=== PATIENT | male | born 1975 | race Caucasian/White ===

== ENCOUNTER → 2017-03-10 10:03 | Outpatient (CLI) | payer BC ==
[2015-01-24 06:33] VITALS: BMI 39.1
[~2017-03-10 10:03] MED LIST: ADIPEX-P37.5 M1 PO; LASIX20 MG PO; PRAVACHOL20 MG PO; ZESTRIL40 MG PO
--- NOTE | 2017-03-10 12:16 | NUR ---
Nutrition education for pre/post-op bariatic surgery: S: Pt reports he has been heavy all his life. Pt states his whole family is obese. Pt reports his mother had gastric bypass years ago and has gained back all the weight she lost and is now heavier than she was before surgery. Pt travels for work and is away from home for at least a week at a time. Pt states he really started to gain wt when he changed to this job with all the travel. Pt eats at fast food or chain resturants daily while on the road. Pt also eats out on the weekend with family. Pt has no concept of portion size. Pt tells me he does not eat very much. Pt did use Adipex in 2007 and lost 75# over 7-8 months and was able to keep the weight off for about 1 year. Pt is having trouble finding the time to get any exercise during the week due to work and travel. S: 42 year old male Ht: 5'11" Wt: 315# IBW: 172# +/-10% BMI: 43.9 PMH: DMT2, HTN, high cholesterol Meds: Metformin A: Reviewed pre/post-op diet phases. Reviewed clear liquids, full liquids, puree, soft and regular diets; reviewed sample menus. Discussed liquids between meals; protein requirements; no carbonated drinks, no straws, no alcohol, no sugar, no high-fat foods; pouch stretching; eating out; daily vitamin, mineral supplements. Pt has no idea what a portion size of food should be. Reviewed portion sizes of common CHO foods with emphasis on timing of meals. Pt with good understanding of information provided. pt with realistic expectations for weight loss. Pts goal wt is 220#; pt wants to stop taking medication. Pt with high motivation for change and verbalizes willingness to make the necessary diet changes needed for long-term weight loss success. P: Provided pt with printed diet information and RDN name and phone number. RDN will be available if needed. Thank you for the consult.
== END ==
LOC: D.FANS 10:03
DX: Z01.818 Encounter for other preprocedural examination (principal)

== ENCOUNTER → 2017-05-14 19:38 | Outpatient (CLI) | payer BC ==
[2015-01-24 06:33] VITALS: BMI 39.1
== END | disposition home or self-care (01) ==
LOC: D.SLEEP 08:00
DX: G47.33 Obstructive sleep apnea (adult) (pediatric) (principal)

== ENCOUNTER → 2017-05-24 09:55 | Outpatient (CLI) | payer BC ==
[2015-01-24 06:33] VITALS: BMI 39.1
[~2017-05-24 09:55] MED LIST changes: +GLUCOPHAGE XR750 MG PO; +LYRICA150 MG PO; +NORCO 7.5/325 T1 TA1 PO; -PRAVACHOL20 MG PO; +PRAVACHOL40 MG PO; +ROBAXIN-750750 MG PO; +VOLTAREN75 MG PO; +VYVANSE70 MG PO; +ZOFRAN ODT4 MG/UDTAB PO
[2017-05-24 10:38] LABS: HEMATOCRIT 42.4 % (42.0-54.0); HEMOGLOBIN 14.7 g/dL (13.5-17.5); MCH 29.5 pg (26.0-34.0); MCHC 34.7 g/dL (31.0-37.0); MCV 85.1 fL (80.0-100.0); PLATELET COUNT 221 10x3/uL (130-400); RBC 4.98 10x6/uL (4.20-6.10); RDW 12.5 % (11.5-14.5); WBC 6.8 10x3/uL (4.8-10.8)
[2017-05-24 10:54] LABS: APTT 26.5 SECONDS (22.8-39.4); INR 0.95 (0.85-1.17); PROTIME 12.5 SECONDS (11.6-15.0)
[2017-05-24 10:58] LABS: ALBUMIN 3.7 g/dL (3.4-5.0); ALKALINE PHOSPHATASE 77 U/L (46-116); ALT (SGPT) 61 U/L (10-68); BILIRUBIN - DIRECT 0.07 mg/dL (0.00-0.30); BILIRUBIN - INDIRECT 0.45 mg/dL (0.00-1.00); BILIRUBIN - TOTAL 0.52 mg/dL (0.2-1.3); CALC OSMOLALITY 277 mosm/kg (275-300); CHLORIDE - SERUM 103 mmol/L (98-107); CHOLESTEROL, TOTAL 176 mg/dL (0-200); CREATININE - SERUM 0.9 mg/dL (0.6-1.3); GLUCOSE 133 mg/dL (74-106); HDL CHOLESTEROL 35 mg/dL (32-96); LDL CHOLESTEROL 109 mg/dL (0-100); LDL-HDL RATIO 3.1 ratio (1.5-3.5); POTASSIUM - SERUM 4.1 mmol/L (3.5-5.1); PROTEIN - SERUM 6.9 g/dL (6.4-8.2); SODIUM 137 mmol/L (136-145); T4 THYROXINE 8.8 ug/dL (4.7-13.3); THYROID STIMULATING HORMONE 2.75 uIU/mL (0.36-3.74); TRIGLYCERIDE 164 mg/dL (30-200); UREA NITROGEN 19 mg/dL (7-18); eGFR NON AFRICAN AMERICAN > 90 mL/min (90-120)
[2017-05-24 11:32] LABS: EOSINOPHILS 2 % (0-7); LYMPHOCYTES 50 % (15-50); MONOCYTES 7 % (2-11); NEUTROPHILS 34 % (40-80); PLATELET ESTIMATE NORMAL; ROULEAUX OCC
[2017-05-24 11:33] LABS: HELICOBACTER PYLORI IGG NEGATIVE (NEGATIVE)
[2017-05-25 07:25] LABS: VITAMIN D 25 HYDROXY 17.9 ng/mL (30.0-100.0)
[2017-05-25 08:18] LABS: FOLATE (FOLIC ACID) - SERUM 14.8 ng/mL (>3.0)
== END | disposition home or self-care (01) ==
LOC: D.RAD 09:55
PROVIDERS: Surgery
DX: E66.01 Morbid (severe) obesity due to excess calories (principal); E11.9 Type 2 diabetes mellitus without complications; I10 Essential (primary) hypertension; M15.3 Secondary multiple arthritis; E78.5 Hyperlipidemia, unspecified

== ENCOUNTER 2017-06-14 06:58 | Day surgery (SDC) | payer BC ==
[~2017-06-14 06:58] MED LIST changes: -GLUCOPHAGE XR750 MG PO; -LYRICA150 MG PO; -NORCO 7.5/325 T1 TA1 PO; -ROBAXIN-750750 MG PO; -VOLTAREN75 MG PO; -VYVANSE70 MG PO; -ZOFRAN ODT4 MG/UDTAB PO
[2017-06-14 07:48] LABS: HEMATOCRIT 42.8 % (42.0-54.0); HEMOGLOBIN 14.7 g/dL (13.5-17.5); MCH 29.3 pg (26.0-34.0); MCHC 34.3 g/dL (31.0-37.0); MCV 85.4 fL (80.0-100.0); MEAN PLATELET VOLUME 10.1 fL (7.4-10.4); RBC 5.01 10x6/uL (4.20-6.10); RDW 12.8 % (11.5-14.5); WBC 8.2 10x3/uL (4.8-10.8)
[2017-06-14] MEDS ORDERED: GLUCOPHAGE XR750 MG PO (07:52)
[2017-06-14] MEDS ORDERED: VYVANSE70 MG PO (07:53)
[2017-06-14] MEDS ORDERED: LYRICA150 MG PO (07:54)
[2017-06-14 07:58] VITALS: BP 133/78; BMI 44.1
[2017-06-14 07:59] LABS: CALC OSMOLALITY 286 mosm/kg (275-300); CALCIUM 9.3 mg/dL (8.5-10.1); CARBON DIOXIDE 26.2 mmol/L (21.0-32.0); CHLORIDE - SERUM 106 mmol/L (98-107); GLUCOSE 142 mg/dL (74-106); POTASSIUM - SERUM 4.1 mmol/L (3.5-5.1); SODIUM 142 mmol/L (136-145); UREA NITROGEN 17 mg/dL (7-18); eGFR NON AFRICAN AMERICAN 87 mL/min (90-120)
--- NOTE | 2017-06-14 09:35 | NUR ---
0975 DISCHARGE INSTRUCTIONS COMPLETE. PT HAS NO QUESTIONS OR CONCERNS AT THIS TIME. FOLLOW UP APPOINTMENT MADE WITH DR. GROVE. PT ESCORTED OUT BY VOLUNTEER.
[2017-08-24] MEDS ORDERED: ROBAXIN-750750 MG PO (13:47)
[2017-08-24] MEDS ORDERED: VOLTAREN75 MG PO (13:48)
== END 2017-06-14 09:36 | disposition home or self-care (01) ==
LOC: D.OPS 06:58
PROVIDERS: Surgery
DX: K21.9 Gastro-esophageal reflux disease without esophagitis (principal); E66.01 Morbid (severe) obesity due to excess calories; Z68.41 Body mass index [BMI] 40.0-44.9, adult; I10 Essential (primary) hypertension; E11.9 Type 2 diabetes mellitus without complications; Z01.812 Encounter for preprocedural laboratory examination

== ENCOUNTER 2017-08-25 05:34 | Inpatient (IN) | payer BC ==
[2017-08-24 14:22] LABS: HEMATOCRIT 46.3 % (42.0-54.0); HEMOGLOBIN 16.4 g/dL (13.5-17.5); MCHC 35.4 g/dL (31.0-37.0); MCV 84.6 fL (80.0-100.0); MEAN PLATELET VOLUME 9.7 fL (7.4-10.4); RBC 5.47 10x6/uL (4.20-6.10); RDW 12.5 % (11.5-14.5); WBC 9.4 10x3/uL (4.8-10.8)
[2017-08-24 14:37] LABS: CALC OSMOLALITY 275 mosm/kg (275-300); CALCIUM 9.8 mg/dL (8.5-10.1); CARBON DIOXIDE 26.2 mmol/L (21.0-32.0); CHLORIDE - SERUM 97 mmol/L (98-107); GLUCOSE 119 mg/dL (74-106); SODIUM 136 mmol/L (136-145); UREA NITROGEN 22 mg/dL (7-18); eGFR NON AFRICAN AMERICAN 87 mL/min (90-120)
[~2017-08-25] VITALS: Ht 180.3 cm; Wt 130.9 kg
--- NOTE | ~2017-08-25 | DS ---
PATIENT:KADEN FOWLER :75 MEDICAL RECORD: [id number] DISCHARGE SUMMARY ADMISSION DATE: 08/25/17 DISCHARGE DATE: 08/26/17 DATE OF ADMISSION: 08/25/2017 DATE OF DISCHARGE: 08/26/2017 SURGEON: Bhavin Grove MD PREOPERATIVE DIAGNOSES: 1. Morbid obesity. 2. Body mass index 40 to 44.9. 3. Essential hypertension. 4. Type 2 diabetes. 5. Mixed hyperlipidemia. ADMITTING PHYSICIAN: Bhavin Grove MD HOSPITAL COURSE: This is a 42-year-old male who was admitted to the hospital for an elective laparoscopic vertical sleeve gastrectomy. The patient tolerated the procedure well and postoperatively, he was transferred to the floor in stable condition. On postoperative day #1, he underwent a Gastrografin swallow, which was in normal limits. At the time of discharge, the patient was tolerating bariatric phase 2 diet. His pain was well controlled on oral pain medicine. He was ambulating independently and voiding without difficulty. DISCHARGE CONDITION: Stable. DISCHARGE DIET: Bariatric phase 2 diet for 2 weeks. WOUND CARE: The patient may shower, soap and water to the wound daily. ACTIVITY: As tolerated, no restrictions. FOLLOWUP: With Dr. Grove in 2 weeks. TRANSINT:[id number] Voice Confirmation ID: [id number] DOCUMENT ID: [id number] BHAVIN GROVE MD at 0817 CC: [id number] DICTATION DATE: 10/04/17 172 IRISH MOSS BLEACHER: 10/05/17 0651 DIS IN 08/26/17 [id number] [place] [address]
--- NOTE | ~2017-08-25 | OP ---
PATIENT NAME: KADEN FOWLER MEDICAL RECORD: [id number] :75 LOCATION:D.[facility] ADMISSION DATE:08/25/17 SURGEON: ANDRÉS CHOWDHURY MD DATE OF OPERATION: 08/25/2017 PREOPERATIVE DIAGNOSIS: Gastric sleeve with a defect on the lateral side of the sleeve. POSTOPERATIVE DIAGNOSIS: No evidence of leakage during pneumatic testing of the gastric sleeve. PROCEDURE: EGD. SURGEON: Andrés Chowdhury MD STORE STOCKER: None. BLOOD LOSS: Minimal. ANESTHESIA: General. DESCRIPTION OF PROCEDURE: I was asked to come in the room during this operative procedure. Dr. Partida was repairing a defect along the lateral aspect of the sleeve gastrectomy. He asked me to perform an EGD. A bite block was inserted. A gastroscope was inserted into the mouth. It was easily advanced into the hypopharynx. The esophagus was easily intubated as were the stomach and the first portion of the duodenum. I then withdrew into the stomach. Dr. Partida instilled normal saline into the abdomen. I insufflated and there was no bubbling and no evidence of leakage. I slowly withdrew the endoscope. The sleeve did not appear to be too tight. The endoscope was then withdrawn under direct vision. TRANSINT:[id number] Voice Confirmation ID: [id number] DOCUMENT ID: [id number] ANDRÉS CHOWDHURY MD at 0938 CC: [id number] DICTATION DATE: 08/25/17 1022 ENTRY CLERK: 08/25/17 1209 DIS IN 08/26/17 [address] [id number] [place] [id number]
[~2017-08-25 05:34] MED LIST changes: +GLUCOPHAGE XR750 MG PO; +LYRICA150 MG PO; +ROBAXIN-750750 MG PO; +VOLTAREN75 MG PO; +VYVANSE70 MG PO
[2017-08-25 07:12] VITALS: BP 122/75; BMI 40.2
[2017-08-25 14:52] VITALS: BP 153/76
[2017-08-25 16:55] VITALS: BP 160/70; Ht 180.3 cm; Wt 130.9 kg
[2017-08-25 20:00] VITALS: BP 163/74
[2017-08-26] VITALS: BP 140/81
[2017-08-26 04:00] VITALS: BP 179/95
[2017-08-26 05:24] LABS: BASOPHILS 0.1 % (0-2); EOSINOPHILS 0.1 % (0-7); HEMATOCRIT 42.1 % (42.0-54.0); HEMOGLOBIN 14.4 g/dL (13.5-17.5); IMMATURE GRANULOCYTES 0.3 % (0-5); LYMPHOCYTES 40.2 % (15-50); MCH 29.3 pg (26.0-34.0); MCHC 34.2 g/dL (31.0-37.0); MCV 85.7 fL (80.0-100.0); MEAN PLATELET VOLUME 10.3 fL (7.4-10.4); NEUTROPHILS 53.3 % (40-80); PLATELET COUNT 253 10x3/uL (130-400); RBC 4.91 10x6/uL (4.20-6.10); RDW 13.1 % (11.5-14.5)
[2017-08-26 05:42] LABS: ALBUMIN 3.8 g/dL (3.4-5.0); ALKALINE PHOSPHATASE 67 U/L (46-116); ALT (SGPT) 146 U/L (10-68); BILIRUBIN - TOTAL 0.72 mg/dL (0.2-1.3); CALC OSMOLALITY 276 mosm/kg (275-300); CALCIUM 8.7 mg/dL (8.5-10.1); CARBON DIOXIDE 22.2 mmol/L (21.0-32.0); CHLORIDE - SERUM 101 mmol/L (98-107); CREATININE - SERUM 0.8 mg/dL (0.6-1.3); GLUCOSE 151 mg/dL (74-106); POTASSIUM - SERUM 3.9 mmol/L (3.5-5.1); PROTEIN - SERUM 6.9 g/dL (6.4-8.2); SODIUM 137 mmol/L (136-145); eGFR NON AFRICAN AMERICAN > 90 mL/min (90-120)
[2017-08-26 05:43] LABS: WBC 14.9 10x3/uL (4.8-10.8)
[2017-08-26 05:55] LABS: UREA NITROGEN 13 mg/dL (7-18)
[2017-08-26 08:35] VITALS: BP 148/88
[2017-08-26 13:48] VITALS: BP 150/80
[2017-08-26 16:04] VITALS: BP 152/90
[2017-08-26] MEDS ORDERED: ZOFRAN ODT4 MG/UDTAB PO (16:34)
[2017-08-26] MEDS ORDERED: NORCO 7.5/325 T1 TA1 PO (16:34)
== END 2017-08-26 18:32 | disposition home or self-care (01) | DRG 621 ==
LOC: D.MS 05:34 → D.SDCHOLD 05:34 → D.MS 14:18
PROVIDERS: Anesthesiology; Surgery
PROC: 0DJ08ZZ Inspection of Upper Intestinal Tract, Via Natural or Artificial Opening Endoscopic (ICD-10-PCS; 2017-08-25)
PROC: 0DB64Z3 Excision of Stomach, Percutaneous Endoscopic Approach, Vertical (ICD-10-PCS; principal; 2017-08-25 08:00)
DX: E66.01 Morbid (severe) obesity due to excess calories (principal); Z68.41 Body mass index [BMI] 40.0-44.9, adult; I10 Essential (primary) hypertension; E11.9 Type 2 diabetes mellitus without complications; E78.2 Mixed hyperlipidemia

== ENCOUNTER → 2018-02-22 09:53 | Outpatient (CLI) | payer BC ==
[2017-08-25 16:55] VITALS: BMI 40.2
[~2018-02-22 09:53] MED LIST changes: +NORCO 7.5/325 T1 TA1 PO; +ZOFRAN ODT4 MG/UDTAB PO
[2018-02-22 10:20] LABS: BASOPHILS 0.7 % (0-2); EOSINOPHILS 2.4 % (0-7); HEMATOCRIT 46.5 % (42.0-54.0); HEMOGLOBIN 16.1 g/dL (13.5-17.5); LYMPHOCYTES 42.3 % (15-50); MCH 29.4 pg (26.0-34.0); MCHC 34.6 g/dL (31.0-37.0); MCV 84.9 fL (80.0-100.0); MEAN PLATELET VOLUME 10.5 fL (7.4-10.4); MONOCYTES 11.1 % (2-11); NEUTROPHILS 43.5 % (40-80); RBC 5.48 10x6/uL (4.20-6.10); RDW 13.6 % (11.5-14.5); WBC 4.6 10x3/uL (4.8-10.8)
[2018-02-22 10:23] LABS: PLATELET COUNT 189 10x3/uL (130-400)
[2018-02-22 10:49] LABS: ALBUMIN 3.6 g/dL (3.4-5.0); ALKALINE PHOSPHATASE 84 U/L (46-116); ALT (SGPT) 17 U/L (10-68); BILIRUBIN - TOTAL 0.86 mg/dL (0.2-1.3); CALC OSMOLALITY 286 mosm/kg (275-300); CALCIUM 9.2 mg/dL (8.5-10.1); CARBON DIOXIDE 30.7 mmol/L (21.0-32.0); CHLORIDE - SERUM 106 mmol/L (98-107); CHOL - HDL RATIO 4.4 ratio (2.3-4.9); CHOLESTEROL, TOTAL 219 mg/dL (0-200); CREATININE - SERUM 0.7 mg/dL (0.6-1.3); HDL CHOLESTEROL 50 mg/dL (32-96); LDL CHOLESTEROL 157 mg/dL (0-100); LDL-HDL RATIO 3.1 ratio (1.5-3.5); POTASSIUM - SERUM 3.7 mmol/L (3.5-5.1); PROTEIN - SERUM 6.8 g/dL (6.4-8.2); SODIUM 143 mmol/L (136-145); TRIGLYCERIDE 62 mg/dL (30-200); UREA NITROGEN 17 mg/dL (7-18); eGFR NON AFRICAN AMERICAN > 90 mL/min (90-120)
[2018-02-22 11:00] LABS: GLUCOSE 92 mg/dL (74-106)
== END | disposition home or self-care (01) ==
LOC: D.LAB 09:53
PROVIDERS: Surgery
DX: Z01.812 Encounter for preprocedural laboratory examination (principal); E11.9 Type 2 diabetes mellitus without complications; E78.5 Hyperlipidemia, unspecified; I10 Essential (primary) hypertension; C91.90 Lymphoid leukemia, unspecified not having achieved remission

== ENCOUNTER 2018-10-19 06:01 | Day surgery (SDC) | payer BC ==
[~2018-10-19] VITALS: Ht 180.3 cm; Wt 61.2 kg
[2018-10-19 06:44] LABS: HEMATOCRIT 32.1 % (42.0-54.0); HEMOGLOBIN 10.3 g/dL (13.5-17.5); MCH 25.9 pg (26.0-34.0); MCHC 32.1 g/dL (31.0-37.0); MCV 80.9 fL (80.0-100.0); MEAN PLATELET VOLUME 9.4 fL (7.4-10.4); RBC 3.97 10x6/uL (4.20-6.10); RDW 15.5 % (11.5-14.5)
[2018-10-19 06:52] LABS: CALC OSMOLALITY 283 mosm/kg (275-300); CARBON DIOXIDE 30.1 mmol/L (21.0-32.0); CHLORIDE - SERUM 103 mmol/L (98-107); CREATININE - SERUM 0.7 mg/dL (0.6-1.3); GLUCOSE 94 mg/dL (74-106); POTASSIUM - SERUM 3.1 mmol/L (3.5-5.1); SODIUM 142 mmol/L (136-145); UREA NITROGEN 15 mg/dL (7-18); eGFR NON AFRICAN AMERICAN > 90 mL/min (90-120)
[2018-10-19 07:39] VITALS: BP 101/64; Ht 180.3 cm; Wt 61.2 kg
[2018-10-19] MEDS ORDERED: HYDROCODON-ACE1 EAC7 PO (09:26)
--- NOTE | 2018-10-19 12:03 | OP ---
PATIENT NAME: KADEN FOWLER MEDICAL RECORD: [id number] :75 LOCATION:D.[facility] ADMISSION DATE: SURGEON: BHAVIN GROVE MD DATE OF OPERATION: 10/19/2018 SURGEON: Bhavin Grove MD PREOPERATIVE DIAGNOSES: 1. Gastric anastomotic stricture. 2. Chronic lymphoid leukemia. POSTOPERATIVE DIAGNOSES: 1. Gastric anastomotic stricture. 2. Chronic lymphoid leukemia. PROCEDURE PERFORMED: 1. Tunneled left subclavian PowerPort with immediate interpretation of fluoroscopy. 2. EGD with dilation of gastric anastomotic stricture to 18-mm. ANESTHESIA: General. COMPLICATIONS: None. SPECIMENS: None. First case was clean. Second procedure was clean contaminated. ESTIMATED BLOOD LOSS: Minimal. OPERATIVE COURSE: After consent was obtained, the patient was taken to the operating room and placed in the supine position on the operating table. Next, general anesthesia was given via endotracheal intubation. The left chest and neck were prepped and draped in typical sterile fashion. Timeout was taken to confirm the correct patient and procedure. Ioban dressing was placed over the left chest wall. A 30 cc of local anesthetic were injected into the chest wall. Left subclavian vein was cannulated on the first pass. A guidewire was placed through the needle and advanced to the atriocaval junction under fluoroscopy. The needle was removed. Skin incision was made with a 15-blade scalpel. Dissection continued to the level of the pectoralis fascia using electrocautery. A pocket was created using electrocautery dissection along the pectoralis fascia. The dilator and breakaway sheath were then passed over the wire in a standard Seldinger fashion. The tunneling device was used to tunnel the catheter from the skin incision site to the needle stick site. The catheter was cut to length under fluoroscopy, the guidewire and dilator were removed. The catheter was advanced to the breakaway sheath, the atriocaval junction and the breakaway sheath was removed. This was done under fluoroscopy. The port was then accessed and aspirated blood without difficulty, it was flushed with 30 cc of normal saline mixed with 5000 units of heparin and it was secured to the pectoralis fascia using interrupted 2-0 Prolene suture. The subcutaneous tissue was closed with 3-0 Vicryl suture. The skin was closed with 4-0 Monocryl, Mastisol and Steri-Strips. At this time, the OR drapes were removed. A bite-block was placed. The gastroscope was inserted through the oropharynx. It was passed posterior to the epiglottis and advanced the esophagus under direct endoscopic vision. The scope was advanced to the GE junction, which appeared OPERATIVE REPORT [id number] KADEN FOWLER within normal limits. Scope was advanced to the stomach, which showed some very mild gastritis. In the mid body of the stomach, there was a stricture. Under some light pressure, the scope was able to be advanced across the gastric stricture. The scope was advanced to the distal stomach through the pylorus and the first portion of duodenum. At this time, the gastric stricture was severely dilated. We started with an 8/9/10 balloon. It was inflated to 10 mL and held across the stricture for 3-1/2 minutes. The balloon dilator was removed. At this time, a 12/13/14 mm balloon was placed through the gastroscope and across the gastric stricture. It was inflated to 15-mm and held for 3-1/2 minutes. Again, there was no mucosal trauma identified at this time. A third balloon dilator was then placed, a 16/17/18 balloon was placed across gastric stricture and inflated to 18-mm with minimal resistance. This was held for 3-1/2 minutes. At this time, the balloon dilator was removed. The scope was easily traversed across the stricture. There was no mucosal trauma identified. There was no bleeding. At this time, the stomach was desufflated. The scope was withdrawn through the stomach and the esophagus under direct endoscopic vision. The procedure was terminated. At the end of the case, all needle and instrument counts were correct. No complications occurred. The patient was extubated and transferred to the recovery room in satisfactory condition. TRANSINT:[id number] Voice Confirmation ID: [id number] DOCUMENT ID: [id number] BHAVIN GROVE MD at 1203 CC: [id number] DICTATION DATE: 10/19/18934 SHELLFISH MANAGER: 10/19/18 1004 REG [facility] [address] [id number]
== END 2018-10-19 11:05 | disposition home or self-care (01) ==
LOC: D.OPS 06:01
PROVIDERS: Anesthesiology; ATTEND Surgery
DX: K31.89 Other diseases of stomach and duodenum (principal); C91.10 Chronic lymphocytic leukemia of B-cell type not having achieved remission; K29.70 Gastritis, unspecified, without bleeding; Z01.812 Encounter for preprocedural laboratory examination

== ENCOUNTER 2018-11-11 11:06 | Inpatient (IN) | payer BC ==
[~2018-11-11] VITALS: Ht 180.3 cm; Wt 57.6 kg
[~2018-11-11 11:06] MED LIST changes: +HYDROCODON-ACE1 EAC7 PO
--- NOTE | 2018-11-11 11:30 | NUR ---
RECEIVED TO ROOM 2201 VIA WC FROM MD OFFICE. A/O X3. SKIN HAS ANGRY RASH PRETTY MUCH GENERALIZED ALL OVER. DENIES NEEDS AT THIS TIME.
[2018-11-11] MEDS ORDERED: CYCLOBENZAPRINE10 MG PO (11:35)
[2018-11-11 12:35] VITALS: BP 118/78; BMI 17.7
--- NOTE | 2018-11-11 13:00 | NUR ---
IN ROOM. LEFT PORT ACCESSED AFTER ONE ATTEMPT. PATIENT TOLERATED WITHOUT C/O PAIN.
[2018-11-11 14:13] LABS: HEMATOCRIT 25.6 % (42.0-54.0); HEMOGLOBIN 8.3 g/dL (13.5-17.5); MCH 25.3 pg (26.0-34.0); MCHC 32.4 g/dL (31.0-37.0); MEAN PLATELET VOLUME 10.4 fL (7.4-10.4); RBC 3.28 10x6/uL (4.20-6.10)
[2018-11-11 14:26] LABS: PLATELET COUNT 279 10x3/uL (130-400); WBC 1.7 10x3/uL (4.8-10.8)
[2018-11-11 14:34] LABS: LYMPHOCYTES 20 % (15-50); NEUTROPHILS 80 % (40-80); PLATELET ESTIMATE INCREASED
[2018-11-11 14:35] LABS: ELLIPTOCYTES OCC
[2018-11-11 14:36] LABS: TEAR DROP CELLS OCC
[2018-11-11 14:46] LABS: ALBUMIN 2.4 g/dL (3.4-5.0); ALKALINE PHOSPHATASE 105 U/L (46-116); ALT (SGPT) 17 U/L (10-68); BILIRUBIN - TOTAL 0.84 mg/dL (0.2-1.3); CALC OSMOLALITY 279 mosm/kg (275-300); CALCIUM 8.5 mg/dL (8.5-10.1); CARBON DIOXIDE 27.3 mmol/L (21.0-32.0); CHLORIDE - SERUM 101 mmol/L (98-107); CREATININE - SERUM 0.7 mg/dL (0.6-1.3); GLUCOSE 114 mg/dL (74-106); POTASSIUM - SERUM 3.6 mmol/L (3.5-5.1); PROTEIN - SERUM 5.8 g/dL (6.4-8.2); SODIUM 138 mmol/L (136-145); UREA NITROGEN 20 mg/dL (7-18); eGFR NON AFRICAN AMERICAN > 90 mL/min (90-120)
[2018-11-11 16:58] VITALS: BP 121/81
--- NOTE | 2018-11-11 18:47 | NUR ---
SUPPER TRAY AT BEDSIDE. WAITING ON TO EAT.
--- NOTE | 2018-11-11 18:55 | NUR ---
AWAKE AND ALERT AND DENIES ALL NEEDS...IV FLUIDS ARE TO LEFT MED PORT D5 1/2 AT 75...OBSERVING CONTACT ISOLATION. BED IS LOW AND CALL LIGHT IS IN REACH.
[2018-11-11 19:54] VITALS: BP 135/89
[2018-11-12 00:13] VITALS: BP 130/75
--- NOTE | 2018-11-12 02:12 | NUR ---
I have reviewed this patient and I concur with the Shift Assessment completed by the Licensed Practical Nurse today this shift.
[2018-11-12 05:37] VITALS: BP 139/87
[2018-11-12 06:15] LABS: BASOPHILS 1.8 % (0-2); EOSINOPHILS 0 % (0-7); HEMATOCRIT 24.9 % (42.0-54.0); IMMATURE GRANULOCYTES 45.9 % (0-5); LYMPHOCYTES 12.8 % (15-50); MCH 25.3 pg (26.0-34.0); MCHC 32.1 g/dL (31.0-37.0); MCV 78.8 fL (80.0-100.0); MEAN PLATELET VOLUME 10.4 fL (7.4-10.4); MONOCYTES 7.3 % (2-11); NEUTROPHILS 32.2 % (40-80); PLATELET COUNT 309 10x3/uL (130-400); RBC 3.16 10x6/uL (4.20-6.10); RDW 17.2 % (11.5-14.5)
[2018-11-12 06:18] LABS: WBC 1.1 10x3/uL (4.8-10.8)
--- NOTE | 2018-11-12 06:29 | NUR ---
WBC 1.1....REVERSE ISO INITIATED
--- NOTE | 2018-11-12 08:24 | NUR ---
PT ALERT X 4. BREATH SOUNDS CLEAR BILAT. SKIN RASH ALL OVER. PORT TO LEFT CHEST, PATENT DRESSING CLEAN DRY AND INTACT. PT REPORTING NO PAIN AT THIS TIME. FAMILY AT BEDSIDE. BED LOW, CALL LIGHT IN REACH. NO OTHER NEEDS AT THIS TIME.
--- NOTE | 2018-11-12 09:54 | NUR ---
NOTIFIED BY PHARMACY THAT THE IMMUNOGLOBULIN ORDERED BY DR MELGAR IS NOT AVAILABLE. IT HAS TO BE APPROVED AND ORDERED BY ADMINISTRATION. NOTIFIED DR MELGAR OF THIS SITUATION AT 0148
[2018-11-12 09:57] VITALS: BP 135/87
[2018-11-12 10:00] LABS: % SATURATION 38 % (15-55); IRON 51 ug/dl (35-150); TOTAL IRON BIND CAPACITY 134 ug/dl (260-445); UNSAT IRON BIND CAPACITY 83 ug/dl (150-375)
[2018-11-12 11:52] VITALS: Ht 180.3 cm; Wt 57.6 kg
[2018-11-12 12:47] VITALS: BP 130/98
[2018-11-12 21:18] VITALS: BP 133/95
[2018-11-13 00:48] VITALS: BP 119/80
[2018-11-13 04:50] VITALS: BP 113/76
[2018-11-13 06:56] LABS: HEMATOCRIT 25.4 % (42.0-54.0); HEMOGLOBIN 8.1 g/dL (13.5-17.5); MCH 25.4 pg (26.0-34.0); MCHC 31.9 g/dL (31.0-37.0); MCV 79.6 fL (80.0-100.0); MEAN PLATELET VOLUME 9.6 fL (7.4-10.4); PLATELET COUNT 305 10x3/uL (130-400); RBC 3.19 10x6/uL (4.20-6.10); RDW 17.3 % (11.5-14.5)
[2018-11-13 06:57] LABS: WBC 1.2 10x3/uL (4.8-10.8)
[2018-11-13 07:29] LABS: BASOPHILS 2 % (0-2); EOSINOPHILS 4 % (0-7); LYMPHOCYTES 10 % (15-50); MONOCYTES 26 % (2-11); NEUTROPHILS 46 % (40-80); PLATELET ESTIMATE NORMAL; SMUDGE CELLS 1+; TOXIC GRANULATION 2+
--- NOTE | 2018-11-13 08:13 | NUR ---
PT ALERT X 4. BREATH SOUNDS CLEAR BILAT. PORT TO LEFT CHEST, PATENT, DRESSING CLEAN DRY AND INTACT. PT REPORTING PAIN OF 2/10, WILL MONITOR. FAMILY AT BEDSIDE. BED LOW, CALL LIGHT IN REACH, NO OTHER NEEDS AT THIS TIME.
[2018-11-13 09:45] VITALS: BP 115/74
[2018-11-13 13:24] VITALS: BP 105/82
[2018-11-13 18:08] VITALS: BP 116/85
[2018-11-13 20:00] VITALS: BP 98/65
[2018-11-14] VITALS (10 sets, daily range): BP systolic 99–136; BP diastolic 63–88
[2018-11-14 06:15] LABS: BASOPHILS 0.4 % (0-2); EOSINOPHILS 4.2 % (0-7); HEMATOCRIT 25.6 % (42.0-54.0); HEMOGLOBIN 8.1 g/dL (13.5-17.5); IMMATURE GRANULOCYTES 0.8 % (0-5); LYMPHOCYTES 13.9 % (15-50); MCH 25.5 pg (26.0-34.0); MCHC 31.6 g/dL (31.0-37.0); MCV 80.5 fL (80.0-100.0); NEUTROPHILS 61.7 % (40-80); PLATELET COUNT 310 10x3/uL (130-400); RBC 3.18 10x6/uL (4.20-6.10); RDW 17.7 % (11.5-14.5)
[2018-11-14 06:24] LABS: WBC 2.4 10x3/uL (4.8-10.8)
--- NOTE | 2018-11-14 07:15 | NUR ---
PT ALERT AND ORIENTED. SITTING UP IN BED WATCHING TV. PT UP AD CLARA. PORT TO LEFT CHEST, D5 1/2 NS INFUSING AT 75ML/HR. RASH ENTIRE BODY. REFUSED SCDS. PT ON NEUTROPENIC PRECAUTIONS. NO C/O PAIN. NO S/S OF ACUTE DISTRESS NOTED. PT DENIES ANYTHING FURTHER AT THIS TIME. CALL LIGHT IN REACH. WILL CONTINUE TO MONITOR.
--- NOTE | 2018-11-14 10:46 | NUR ---
I have reviewed this patient and I concur with the Shift Assessment completed by the Licensed Practical Nurse today this shift.
--- NOTE | 2018-11-14 14:21 | NUR ---
PT VS STABLE FOR IVIG INFUSION. LEFT PORT WITH EXCELLENT BLOOD RETURNED NOTED. VS STABLE AT P 92 R 18 BP 134/66 SAT OF 100 ON RA. WILL CONTINUE TO MONTIOR. YELLOW CHEMO BUCKET IN ROOM WITH SIGN FOR DOUBLE FLUSH/DOUBLE GLOVE. IV SET AT 17/HR FOR FIRST 30 MIN
--- NOTE | 2018-11-14 14:42 | NUR ---
VS STABLE. 123/80 P 95 R 17 SAT 100% NO COMPLAINTS FROM PATIENT. RATE INCREASED TO 34ML/HR AFTER BLOOD RETURN NOTED. WILL CONTINUE TO MONITOR.
--- NOTE | 2018-11-14 15:18 | NUR ---
PT TOLERATING IVIG VS STABLE. RATE INCREASED ORDERED AFTER BLOOD RETURN NOTED FROM LEFT INFUSAPORT. WILL CONTINUE TO MONITOR
--- NOTE | 2018-11-14 15:43 | NUR ---
RATE INCREASED TO 136 CC/HR. VS STABLE 136/85 87 18 100 SAT. WILL CONTINUE TO MONITOR.
--- NOTE | 2018-11-14 17:41 | NUR ---
PT SITTING UP IN BED. NO C/O PAIN. NO S/S OF ACUTE DISTRESS NOTED. CHEMO STILL INFUSING AT THIS TIME. PT DENIES ANYTHING FURTHER AT THIS TIME. FAMILY AT BEDSIDE. CALL LIGHT IN REACH. WILL CONTINUE TO MONITOR.
--- NOTE | 2018-11-14 23:40 | NUR ---
REC'D. AT [facility]. OF SHIFT UP AND ABOUT IN ROOM ASLEEP AT BEDSIDE IN RECLINER.DENIES ANY DISCOMFORT AT PRESENT TIME. WILL CONTINUE TO MONITOR FOR ANY CHGES. AND FOLLOW CURRENT PLAN OF CARE.
--- NOTE | 2018-11-15 04:00 | NUR ---
I have reviewed this patient and I concur with the Shift Assessment completed by the Licensed Practical Nurse today this shift.
[2018-11-15 05:12] VITALS: BP 113/74
[2018-11-15 05:50] LABS: HEMATOCRIT 25.1 % (42.0-54.0); HEMOGLOBIN 7.8 g/dL (13.5-17.5); MCH 25.2 pg (26.0-34.0); MCHC 31.1 g/dL (31.0-37.0); MEAN PLATELET VOLUME 10.4 fL (7.4-10.4); PLATELET COUNT 313 10x3/uL (130-400); RDW 18.2 % (11.5-14.5)
[2018-11-15 06:17] LABS: WBC 3.2 10x3/uL (4.8-10.8)
--- NOTE | 2018-11-15 07:41 | NUR ---
PT ALERT X 4. BREATH SOUNDS CLEAR BILAT. PORT TO LEFT CHEST, PATENT, DRESSING CLEAN DRY AND INTACT. RASH IS IMPROVING. PT REPORTING NO PAIN AT THIS TIME. BED LOW, CALL LIGHT IN REACH, NO OTHER NEEDS AT THIS TIME.
[2018-11-15 08:51] LABS: BASOPHILS 1 % (0-2); EOSINOPHILS 3 % (0-7); LYMPHOCYTES 9 % (15-50); MONOCYTES 27 % (2-11); NEUTROPHILS 28 % (40-80); PLATELET ESTIMATE NORMAL; TOXIC GRANULATION OCC
[2018-11-15 09:17] LABS: FOLATE (FOLIC ACID) - SERUM 13.2 ng/mL (>3.0)
[2018-11-15 09:17] LABS: IMMUNOGLOBULIN A 73 mg/dL (90-386); IMMUNOGLOBULIN G 838 mg/dL (700-1600); IMMUNOGLOBULIN M 17 mg/dL (20-172)
[2018-11-15 09:38] VITALS: BP 133/74
--- NOTE | 2018-11-15 10:20 | NUR ---
NUTRITION F/U CHART REVIEWED. PT REMAINS IN NEUTROPENIC ISOLATION. NURSING REPORTS PT PO INTAKE IMPROVING. WILL CONTINUE TO PROVIDE DIET, HONOR FOOD PREFERENCES. RD FOLLOWING
[2018-11-15 11:59] LABS: PATH REVIEW PERIPHERAL SMEAR REVIEWED
[2018-11-15 14:15] VITALS: BP 124/80
[2018-11-15 14:22] VITALS: BP 118/77
--- NOTE | 2018-11-15 14:22 | NUR ---
ivig started per left infusaport after good blood return checked. vs stable-ivig set at 57 ml/hr , will continue to monitor. yellow chemo bucket and sign in room for double flush/double glove. call light in reach
[2018-11-15 14:41] VITALS: BP 132/86
--- NOTE | 2018-11-15 14:42 | NUR ---
VS STABLE. IVIG RATE INCREASED TO 114 ML/HR ORDERED. NO COMPLAINTS AT PRESENT. CALL LIGHT IN REACH
--- NOTE | 2018-11-15 15:15 | NUR ---
VITAL SIGNS STABLE. RATE INCREASED TO 228ML/HR.
--- NOTE | 2018-11-15 15:27 | MORECARE ---
CASE MANAGEMENT DISCHARGE SUMMARY PATIENT: KADEN FOWLER UNIT: [id number] ADM DATE: 11/11/18 AGE: 43 : 75 SEX: M ROOM/BED: D.2201 AUTHOR: ABDULKADIR,DOC PHYSICIAN: REFERRING PHYSICIAN: TAMMI EPPERSON MD DATE OF SERVICE: 11/15/18 Discharge Plan Patient Name: KADEN FOWLER Facility: [facility]:[place] : 1975 Planned Disposition: Home Anticipated Discharge Date: Discharge Date: Expected LOS: Initial Reviewer: [email or web address] Initial Review Date: 11/11/2018 Generated: 11/15/18 4:26 pm Comments DCP- Discharge Planning Updated by [email or web address]: Samantha Antony on 11/15/18 2:[address] Patient Name: KADEN FOWLER Admission Status: Elective Accout number: [id number] Admission Date: 11-11-2018 : 1975 Admission Diagnosis: Attending: TAMMI EPPERSON Current LOS: 4 Anticipated DC Date: Planned Disposition: Home Primary Insurance: [employer] OF [employer] CM met with patient to complete initial dc planning assessment. CM educated patient on the CM role and verbal consent given by patient to complete assessment. Patient lives at home with his and mother and 3 chidren, ages 15,19 and 22.. At discharge patient plans to return and feels this is a safe discharge. CM discussed availability of home health, rehab services, and medical equipment. Patient denied known discharge needs at this time. CM will continue to follow and will assist as needed with dc plans/needs. Discharge Planning Comments: Technical Services Rep: Samantha Antony DCPIA - Discharge Planning Initial Assessment Updated by [email or web address]: Samantha Antony on 11/15/18 3:20 pm * Is the patient Alert and Oriented? Yes * How many steps to enter\exit or inside your home? 08/23 flight * PCP Dr. Ramos * Pharmacy [facility] in [place] * Preadmission Environment Home with Family * ADLs Independent * Equipment None * List name and contact numbers for known caregivers / representatives who currently or will assist patient after discharge: Ladan [facility] - [phone] * Verbal permission to speak to the caregivers and representatives has been obtained from the patient. Yes * Community resources currently utilized None * Additional services required to return to the preadmission environment? No * Can the patient safely return to the preadmission environment? Yes * Has this patient been hospitalized within the prior 30 days at any hospital? No Patient Name: KADEN FOWLER Page [id number] at 1527 All edits/amendments must be made on the electronic document DICTATION DATE: 11/15/181525 TRANSPORTATION PROGRAM DIRECTOR: LEATHA 11/15/181525 RPT#: [id number] DC DATE: STATUS: ADM IN [facility] [address] [place] [address] END OF REPORT
--- NOTE | 2018-11-15 15:45 | NUR ---
VITAL SIGNS STABLE. PT REPORTING NAUSEA, MEDICATED PER ORDERS, WILL MONITOR. INCREASED RATE OF IVIG TO 456ML/HR.
[2018-11-15 19:47] LABS: APPEARANCE CLEAR (CLEAR); COLOR YELLOW (YELLOW)
[2018-11-15 19:48] LABS: BILIRUBIN NEGATIVE (NEGATIVE); GLUCOSE 100 mg/dL (NEGATIVE); KETONE NEGATIVE (NEGATIVE); NITRITE NEGATIVE (NEGATIVE); PROTEIN NEGATIVE (NEGATIVE); UROBILINOGEN NORMAL (NORMAL)
--- NOTE | 2018-11-15 20:10 | NUR ---
LYING QUIELTY.NO DISTRESS NOTED. RESP UNLABORED. IV INFUSING TO LEFT PORT WITHOUT REDNESS OR EDEMA NOTED.NO COMPLAITNS VOICED. AT BEDSIDE
[2018-11-15 20:54] VITALS: BP 130/84
[2018-11-16] VITALS (8 sets, daily range): BP systolic 114–154; BP diastolic 70–90
--- NOTE | 2018-11-16 04:32 | NUR ---
I have reviewed this patient and I concur with the Shift Assessment completed by the Licensed Practical Nurse today this shift.
[2018-11-16 07:07] LABS: HEMATOCRIT 23.6 % (42.0-54.0); MCH 25.3 pg (26.0-34.0); MCHC 31.4 g/dL (31.0-37.0); MCV 80.8 fL (80.0-100.0); MEAN PLATELET VOLUME 10.1 fL (7.4-10.4); PLATELET COUNT 299 10x3/uL (130-400); RBC 2.92 10x6/uL (4.20-6.10); RDW 18.6 % (11.5-14.5)
[2018-11-16 07:13] LABS: WBC 4.9 10x3/uL (4.8-10.8)
[2018-11-16 07:18] LABS: HEMOGLOBIN 7.4 g/dL (13.5-17.5)
--- NOTE | 2018-11-16 07:40 | NUR ---
PT RESTING IN BED. AROUSED BY VERBAL STIMULI. NO S/S OF ACUTE DISTRESS. CL IN PLACE.
[2018-11-16 08:58] LABS: EOSINOPHILS 2 % (0-7); LYMPHOCYTES 13 % (15-50); MONOCYTES 9 % (2-11); NEUTROPHILS 52 % (40-80)
[2018-11-16 08:59] LABS: PLATELET ESTIMATE NORMAL
--- NOTE | 2018-11-16 09:10 | NUR ---
SPOKE WITH LEXIE CLIN CONCERNING PT TEMP OF 100.4 PRIOR TO TRANSFUSE PRBC. ORDER FOR TYLENOL 650MG Q4PRN GIVEN. PRBC INFUSING. NO S/S OF ACUTE DISTRESS. CL IN PLACE.
--- NOTE | 2018-11-16 10:33 | NUR ---
NUTRITION F/U CHART REVIEWED. PT VISIT. PT REPORTS TOLERATING CURRENT DIET. STATES HIS APPETITE AND PO INTAKE ARE "OKAY." FAMILY ALSO PROVIDING FOODS FROM OUTSIDE HOSPITAL. DECLINES NUTRITIONAL SUPPLEMENTS AT THIS TIME. ENCOURAGED PT TO FILL OUT [employer] FOR FOOD PREFERENCES. RD FOLLOWING
--- NOTE | 2018-11-16 15:55 | NUR ---
PRBC COMPLETED. IVIG HUNG AT 57 ML/HR ORDERED TO LEFT INFUSAPORT AFTER BLOOD RETURN NOTED. VS STABLE. YELLOW CHEMO BUCKET AND SIGN FOR DOUBLE FLUSH/DOUBLE GLOVE IN ROOM. CALL LIGHT IN REACH
--- NOTE | 2018-11-16 16:19 | NUR ---
LEFT INFUSPORT WITH BLOOD RETURN NOTED. IVIG INCREASED TO 114 ML/HR ORDERED. VS STABLE. CALL LIGHT IN REACH
--- NOTE | 2018-11-16 16:53 | NUR ---
IVIG INCREASED TO 228 ML/HR ORDERED. VS STABLE. WILL CONTINUE TO MONITOR
--- NOTE | 2018-11-16 17:22 | NUR ---
IG INCREASED TO 326ML/HR PER MD ORDERS. V/S STABLE. NO S/S OF ACUTE DISTRESS. CL IN PLACE.
--- NOTE | 2018-11-16 19:22 | NUR ---
PT SITTING UP EATING DINNER AND VISITING WITH FAMILY. NO S/S OF ACUTE DISTRESS. CL IN PLACE.
--- NOTE | 2018-11-16 20:15 | NUR ---
LYING QUEITLY. NO DISTRESS NOTED. RESP EVEN AND UNLABORED.IV INFSUING TO LEFT PORT WITHOUT REDNESS OR EDEMA NOTED. NO COMPLAITNS VOICED. CL IN REACH. AT BEDSIDE.
[2018-11-17 01:01] VITALS: BP 128/84
[2018-11-17 04:14] LABS: BASOPHILS 0.7 % (0-2); EOSINOPHILS 1.1 % (0-7); IMMATURE GRANULOCYTES 9.5 % (0-5); LYMPHOCYTES 5.2 % (15-50); MCH 26.2 pg (26.0-34.0); MCHC 32.7 g/dL (31.0-37.0); MCV 80.3 fL (80.0-100.0); MEAN PLATELET VOLUME 10.2 fL (7.4-10.4); MONOCYTES 10.1 % (2-11); NEUTROPHILS 73.4 % (40-80); RDW 18.2 % (11.5-14.5)
[2018-11-17 04:20] LABS: HEMATOCRIT 29.7 % (42.0-54.0); HEMOGLOBIN 9.7 g/dL (13.5-17.5); PLATELET COUNT 216 10x3/uL (130-400)
[2018-11-17 04:27] LABS: CALC OSMOLALITY 272 mosm/kg (275-300); CALCIUM 7.7 mg/dL (8.5-10.1); CARBON DIOXIDE 31.4 mmol/L (21.0-32.0); CHLORIDE - SERUM 102 mmol/L (98-107); CREATININE - SERUM 0.6 mg/dL (0.6-1.3); GLUCOSE 89 mg/dL (74-106); SODIUM 138 mmol/L (136-145); UREA NITROGEN 8 mg/dL (7-18); eGFR NON AFRICAN AMERICAN > 90 mL/min (90-120)
[2018-11-17 04:28] LABS: POTASSIUM - SERUM 2.8 mmol/L (3.5-5.1)
[2018-11-17 04:45] VITALS: BP 134/80
--- NOTE | 2018-11-17 04:48 | NUR ---
I have reviewed this patient and I concur with the Shift Assessment completed by the Licensed Practical Nurse today this shift.
--- NOTE | 2018-11-17 07:45 | NUR ---
PT RESTING IN BED WATCHING TV. DISCONNECTED PT AND SL SO PT COULD SHOWER. NO S/S OF ACUTE DISTRESS. TEMP-99.1. CL IN PLACE.
[2018-11-17 09:23] VITALS: BP 123/81
--- NOTE | 2018-11-17 10:19 | NUR ---
CALLED DR EPPERSON'S OFFICE AND REPORTED K-2.8. WBC-7.HGB-9.7. HCT-29.7. ORDER TO INITIATE ELECTROLTE PROTOCOL GIVEN. FIRST DOSE OF 20 MEQ K GIVEN AT 1000. NO S/S OF ACUTE DISTRESS. CL IN PLACE.
--- NOTE | 2018-11-17 11:12 | NUR ---
CHANGED CVL DRESSING BY STERILE TECHNIQUE. NO S/S OF ACUTE DISTRESS. CL IN PLACE.
[2018-11-17 12:22] VITALS: BP 127/81
[2018-11-17 17:53] VITALS: BP 144/92
--- NOTE | 2018-11-17 18:00 | NUR ---
PT RESTING IN BED. AND GRANDCHILDREN AT BEDSIDE. NO S/S OF ACUTE DISTRESS. CL IN PLACE.
[2018-11-17 21:57] VITALS: BP 129/83
[2018-11-18 01:29] VITALS: BP 119/86
[2018-11-18 05:05] VITALS: BP 134/80
[2018-11-18 06:52] LABS: HEMATOCRIT 29.4 % (42.0-54.0); HEMOGLOBIN 9.5 g/dL (13.5-17.5); MCHC 32.3 g/dL (31.0-37.0); MCV 80.5 fL (80.0-100.0); MEAN PLATELET VOLUME 10.9 fL (7.4-10.4); PLATELET COUNT 189 10x3/uL (130-400); RBC 3.65 10x6/uL (4.20-6.10); RDW 18.6 % (11.5-14.5); WBC 8.7 10x3/uL (4.8-10.8)
[2018-11-18 07:28] LABS: EOSINOPHILS 1 % (0-7); LYMPHOCYTES 4 % (15-50); MONOCYTES 6 % (2-11); NEUTROPHILS 82 % (40-80); PLATELET ESTIMATE NORMAL
[2018-11-18 07:29] LABS: ANISOCYTOSIS 1+
--- NOTE | 2018-11-18 07:46 | NUR ---
AWAKE AND ALERT. ORIENTED X3. C/O NAUSEA THIS AM. GIVEN 4MG ZOFRAN PO FOR SAME. WILL MONITOR. LUNGS ARE CLEAR BILATERALLY,NO COUGH NOTED. SKIN IS INTACT WITH RASH GENERALIZED BUT IMPROVED FROM ADMISSION. LEFT PORT IS PATENT WITHOUT REDNESS AT INSERTION SITE. DENIES NEEDS.
[2018-11-18 09:30] VITALS: BP 133/91
--- NOTE | 2018-11-18 09:30 | NUR ---
ATE ABOUT HALF OF BREAKFAST. DENEIES NEEDS.
--- NOTE | 2018-11-18 12:30 | NUR ---
LUNCH SERVED IN ROOM. STATED HE WASN'T HUNGRY RIGHT NOW. AT BEDSIDE.
--- NOTE | 2018-11-18 13:10 | MORECARE ---
CASE MANAGEMENT DISCHARGE SUMMARY PATIENT: KADEN FOWLER UNIT: [id number] ADM DATE: 11/11/18 AGE: 43 : 75 SEX: M ROOM/BED: D.2201 AUTHOR: UTE PANCHAL PHYSICIAN: REFERRING PHYSICIAN: TAMMI EPPERSON MD DATE OF SERVICE: 11/18/18 Discharge Plan Patient Name: KADEN FOWLER Facility: [facility]:[place] : 1975 Planned Disposition: Home Anticipated Discharge Date: Discharge Date: Expected LOS: Initial Reviewer: [email or web address] Initial Review Date: 11/11/2018 Generated: 11/18/18 2:10 pm Comments DCP- Discharge Planning Updated by [email or web address]: Juany Mares on 11/18/18 12:[address] Patient Name: KADEN FOWLER Encounter No: [id number] : 1975 Primary Insurance: [facility] Anticipated DC Date: Planned Disposition: Home External Planned Provider: : DCP follow-up note: Patient and family in agreement with discharge plan. No changes to plan. Case management will follow and assist as needed. Juany Mares DCP- Discharge Planning Updated by [email or web address]: Samantha Antony on 11/15/18 2:[address] Patient Name: KADEN FOWLER Admission Status: Elective Accout number: [id number] Admission Date: 11-11-2018 : 1975 Admission Diagnosis: Attending: TAMMI EPPERSON Current LOS: 4 Anticipated DC Date: Planned Disposition: Home Primary Insurance: [employer] CM met with patient to complete initial dc planning assessment. CM educated patient on the CM role and verbal consent given by patient to complete assessment. Patient lives at home with his and mother and 3 chidren, ages 15,19 and 22.. At discharge patient plans to return and feels this is a safe discharge. CM discussed availability of home health, rehab services, and medical equipment. Patient denied known discharge needs at this time. CM will continue to follow and will assist as needed with dc plans/needs. Discharge Planning Comments: Cfd Engineer: Samantha Antony DCPIA - Discharge Planning Initial Assessment Updated by [email or web address]: Samantha Antony on 11/15/18 3:20 pm * Is the patient Alert and Oriented? Yes * How many steps to enter\exit or inside your home? 08/23 flight * PCP Dr. Ramos * Pharmacy [facility] in [place] * Preadmission Environment Home with Family * ADLs Independent * Equipment None * List name and contact numbers for known caregivers / representatives who currently or will assist patient after discharge: Ladan gilbert - [phone] * Verbal permission to speak to the caregivers and representatives has been obtained from the patient. Yes * Community resources currently utilized None * Additional services required to return to the preadmission environment? No * Can the patient safely return to the preadmission environment? Yes * Has this patient been hospitalized within the prior 30 days at any hospital? No Last DP export: 11/15/18 2:26 p Patient Name: KADEN FOWLER Page [id number] at 1310 All edits/amendments must be made on the electronic document DICTATION DATE: 11/18/18 1309 TELEVISION REPAIR TEACHER: LEATHA 11/18/18 1309 RPT#: [id number] DC DATE: STATUS: ADM IN [facility] [address] [place] [address] END OF REPORT
[2018-11-18 13:31] VITALS: BP 123/85
[2018-11-18] MEDS ORDERED: KEFLEX500 MG PO (15:47)
--- NOTE | 2018-11-18 16:05 | NUR ---
DISCHARGED TO HOME WITH AMBULATORY. DISCHARGE INSTRUCTIONS GIVEN BOTH VERBALLY AND WRITTEN. ALL QUESTIONS ANSWERED. PATIENT VERBALZED UNDERSTANDING OF SAME. NEEDED PRESCRIPTIONS GIVEN TO PATIENT. LEFT PORT DEACCESSED AFTER HEPRANIZED. ALL BELONGINGS WITH PATIENT.
--- NOTE | 2018-11-23 12:23 | MORECARE ---
CASE MANAGEMENT DISCHARGE SUMMARY PATIENT: KADEN FOWLER UNIT: [id number] ADM DATE: 11/11/18 AGE: 43 : 75 SEX: M ROOM/BED: D.2201 AUTHOR: UTE PANCHAL PHYSICIAN: REFERRING PHYSICIAN: TAMMI EPPERSON MD DATE OF SERVICE: 11/23/18 Discharge Plan Patient Name: KADEN FOWLER Facility: [facility]:[place] : 1975 Planned Disposition: Home Anticipated Discharge Date: Discharge Date: 11/18/2018 Expected LOS: 0 Initial Reviewer: [email or web address] Initial Review Date: 11/11/2018 Generated: 11/23/18 1:23 pm Comments DCP- Discharge Planning Updated by [email or web address]: Juany Mares on 11/18/18 12:[address] Patient Name: KADEN FOWLER Encounter No: [id number] : 1975 Primary Insurance: [facility] Anticipated DC Date: Planned Disposition: Home External Planned Provider: : DCP follow-up note: Patient and family in agreement with discharge plan. No changes to plan. Case management will follow and assist as needed. Juany Mares DCP- Discharge Planning Updated by [email or web address]: Samantha Antony on 11/15/18 2:[address] Patient Name: KADEN FOWLER Admission Status: Elective Accout number: [id number] Admission Date: 11-11-2018 : 1975 Admission Diagnosis: Attending: TAMMI EPPERSON Current LOS: 4 Anticipated DC Date: Planned Disposition: Home Primary Insurance: [facility] CM met with patient to complete initial dc planning assessment. CM educated patient on the CM role and verbal consent given by patient to complete assessment. Patient lives at home with his and mother and 3 chidren, ages 15,19 and 22.. At discharge patient plans to return and feels this is a safe discharge. CM discussed availability of home health, rehab services, and medical equipment. Patient denied known discharge needs at this time. CM will continue to follow and will assist as needed with dc plans/needs. Discharge Planning Comments: Vp Delivery: Samantha Antony DCPIA - Discharge Planning Initial Assessment Updated by [email or web address]: Samantha Antony on 11/15/18 3:20 pm * Is the patient Alert and Oriented? Yes * How many steps to enter\exit or inside your home? 08/23 flight * PCP Dr. Ramos * Pharmacy [facility] in [place] * Preadmission Environment Home with Family * ADLs Independent * Equipment None * List name and contact numbers for known caregivers / representatives who currently or will assist patient after discharge: Ladan gilbert - [phone] * Verbal permission to speak to the caregivers and representatives has been obtained from the patient. Yes * Community resources currently utilized None * Additional services required to return to the preadmission environment? No * Can the patient safely return to the preadmission environment? Yes * Has this patient been hospitalized within the prior 30 days at any hospital? No Last DP export: 11/18/18 12:10 p Patient Name: KADEN FOWLER Page 50418 at 1223 All edits/amendments must be made on the electronic document DICTATION DATE: 11/23/18 1222 RADIOLOGY TEACHER: LEATHA 11/23/18 1222 RPT#: [id number] DC DATE:11/18/18 STATUS: DIS IN [facility] [address] [place] [address] END OF REPORT
== END 2018-11-18 16:05 | disposition home or self-care (01) | DRG 808 ==
LOC: D.MS 11:06
PROVIDERS: Internal Medicine Hematology & Oncology; Student in an Organized Health Care Education/Training Program; ADMIT Internal Medicine Hematology & Oncology; ATTEND Internal Medicine Hematology & Oncology
DX: D70.9 Neutropenia, unspecified (principal); E41 Nutritional marasmus; Z68.1 Body mass index [BMI] 19.9 or less, adult; K91.2 Postsurgical malabsorption, not elsewhere classified; C91.11 Chronic lymphocytic leukemia of B-cell type in remission; L08.89 Other specified local infections of the skin and subcutaneous tissue; L51.9 Erythema multiforme, unspecified

== ENCOUNTER 2018-11-20 20:03 | Inpatient (IN) | payer BC ==
[~2018-11-20] VITALS: Ht 180.3 cm; Wt 61.0 kg
[~2018-11-20 20:03] MED LIST changes: +CYCLOBENZAPRINE10 MG PO; +KEFLEX500 MG PO
[2018-11-20 20:21] VITALS: BP 116/85
[2018-11-20 20:44] LABS: HEMATOCRIT 26.7 % (42.0-54.0); HEMOGLOBIN 8.4 g/dL (13.5-17.5); MCH 26.2 pg (26.0-34.0); MCHC 31.5 g/dL (31.0-37.0); MCV 83.2 fL (80.0-100.0); MEAN PLATELET VOLUME 10.5 fL (7.4-10.4); RBC 3.21 10x6/uL (4.20-6.10); RDW 18.9 % (11.5-14.5)
[2018-11-20 20:48] LABS: PLATELET COUNT 253 10x3/uL (130-400)
[2018-11-20 20:53] LABS: APTT 27.8 SECONDS (22.8-39.4); INR 1.07 (0.85-1.17); PROTIME 13.4 SECONDS (11.6-15.0)
[2018-11-20 21:00] VITALS: BP 116/83
[2018-11-20 21:02] LABS: ALBUMIN 2.1 g/dL (3.4-5.0); ALKALINE PHOSPHATASE 98 U/L (46-116); ALT (SGPT) 7 U/L (10-68); BILIRUBIN - TOTAL 0.27 mg/dL (0.2-1.3); CALC OSMOLALITY 286 mosm/kg (275-300); CALCIUM 8.1 mg/dL (8.5-10.1); CARBON DIOXIDE 31.8 mmol/L (21.0-32.0); CHLORIDE - SERUM 105 mmol/L (98-107); CREATININE - SERUM 0.7 mg/dL (0.6-1.3); GLUCOSE 121 mg/dL (74-106); POTASSIUM - SERUM 3.5 mmol/L (3.5-5.1); PROTEIN - SERUM 6.6 g/dL (6.4-8.2); SODIUM 142 mmol/L (136-145); UREA NITROGEN 22 mg/dL (7-18); eGFR NON AFRICAN AMERICAN > 90 mL/min (90-120)
[2018-11-20 21:18] LABS: BASOPHILS 2 % (0-2); LYMPHOCYTES 11 % (15-50); MONOCYTES 2 % (2-11); NEUTROPHILS 83 % (40-80); PLATELET ESTIMATE NORMAL
[2018-11-20 21:19] LABS: ROULEAUX 1+
[2018-11-20 21:20] LABS: ELLIPTOCYTES OCC
[2018-11-20 22:40] VITALS: BP 119/82; BP 119/83
[2018-11-20] MEDS ORDERED: VITAMIN D2000 UNIT PO (22:52)
[2018-11-20] MEDS ORDERED: EZFE 200200 MG PO (22:53)
[2018-11-20] MEDS ORDERED: XANAX0.5 MG PO (22:57)
[2018-11-20] MEDS ORDERED: VOLTAREN75 MG PO (22:59)
[2018-11-20 23:00] VITALS: BP 120/78
[2018-11-20] MEDS ORDERED: CLEOCIN HCL300 MG PO (23:00)
[2018-11-20] MEDS ORDERED: ROBAXIN500 MG PO (23:01)
[2018-11-20] MEDS ORDERED: OMEPRAZOLE40 MG (23:02)
[2018-11-20] MEDS ORDERED: K-DUR20 MEQ (23:03)
[2018-11-20 23:15] VITALS: BP 119/82
[2018-11-20 23:16] VITALS: BP 119/82; BMI 17.8
[2018-11-21] VITALS (25 sets, daily range): BP systolic 115–154; BP diastolic 74–98; Ht 180.3 cm; Wt 61.0 kg
[2018-11-21 04:28] LABS: BASOPHILS 0.3 % (0-2); EOSINOPHILS 1.1 % (0-7); IMMATURE GRANULOCYTES 4.5 % (0-5); LYMPHOCYTES 11.2 % (15-50); MCH 27.6 pg (26.0-34.0); MCHC 32.5 g/dL (31.0-37.0); MCV 84.9 fL (80.0-100.0); MEAN PLATELET VOLUME 10.9 fL (7.4-10.4); MONOCYTES 10.7 % (2-11); NEUTROPHILS 72.2 % (40-80); RDW 18.7 % (11.5-14.5)
[2018-11-21 04:36] LABS: RBC 2.32 10x6/uL (4.20-6.10); WBC 3.6 10x3/uL (4.8-10.8)
[2018-11-21 04:38] LABS: HEMATOCRIT 19.7 % (42.0-54.0); HEMOGLOBIN 6.4 g/dL (13.5-17.5); PLATELET COUNT 174 10x3/uL (130-400)
[2018-11-21 04:50] LABS: ALBUMIN 1.8 g/dL (3.4-5.0); ALKALINE PHOSPHATASE 72 U/L (46-116); ALT (SGPT) 8 U/L (10-68); BILIRUBIN - TOTAL 0.28 mg/dL (0.2-1.3); CALC OSMOLALITY 282 mosm/kg (275-300); CALCIUM 7.6 mg/dL (8.5-10.1); CARBON DIOXIDE 31.2 mmol/L (21.0-32.0); CHLORIDE - SERUM 107 mmol/L (98-107); GLUCOSE 88 mg/dL (74-106); PROTEIN - SERUM 5.3 g/dL (6.4-8.2); SODIUM 141 mmol/L (136-145); UREA NITROGEN 20 mg/dL (7-18)
[2018-11-21 04:56] LABS: CREATININE - SERUM 0.5 mg/dL (0.6-1.3); eGFR NON AFRICAN AMERICAN > 90 mL/min (90-120)
[2018-11-21 14:11] LABS: HEMATOCRIT 23.3 % (42.0-54.0)
[2018-11-21 15:00] LABS: HEMOGLOBIN 7.9 g/dL (13.5-17.5)
[2018-11-22] VITALS (14 sets, daily range): BP systolic 121–151; BP diastolic 73–100
[2018-11-22 01:31] LABS: HEMATOCRIT 28.5 % (42.0-54.0)
[2018-11-22 06:00] LABS: HEMATOCRIT 29.2 % (42.0-54.0); MCH 28.5 pg (26.0-34.0); MCHC 34.2 g/dL (31.0-37.0); MCV 83.2 fL (80.0-100.0); MEAN PLATELET VOLUME 10.5 fL (7.4-10.4); PLATELET COUNT 154 10x3/uL (130-400); RDW 16.9 % (11.5-14.5)
[2018-11-22 06:26] LABS: ALBUMIN 1.9 g/dL (3.4-5.0); ALKALINE PHOSPHATASE 67 U/L (46-116); ALT (SGPT) 8 U/L (10-68); BILIRUBIN - TOTAL 0.55 mg/dL (0.2-1.3); CALC OSMOLALITY 277 mosm/kg (275-300); CALCIUM 7.9 mg/dL (8.5-10.1); CARBON DIOXIDE 29.3 mmol/L (21.0-32.0); CHLORIDE - SERUM 106 mmol/L (98-107); CREATININE - SERUM 0.5 mg/dL (0.6-1.3); GLUCOSE 91 mg/dL (74-106); POTASSIUM - SERUM 3.5 mmol/L (3.5-5.1); PROTEIN - SERUM 5.2 g/dL (6.4-8.2); SODIUM 140 mmol/L (136-145); eGFR NON AFRICAN AMERICAN > 90 mL/min (90-120)
[2018-11-22 06:32] LABS: RBC 3.51 10x6/uL (4.20-6.10); WBC 2.6 10x3/uL (4.8-10.8)
[2018-11-22 06:43] LABS: UREA NITROGEN 11 mg/dL (7-18)
[2018-11-22 09:33] LABS: EOSINOPHILS 1 % (0-7); LYMPHOCYTES 14 % (15-50); MONOCYTES 12 % (2-11); NEUTROPHILS 68 % (40-80); PLATELET ESTIMATE NORMAL
[2018-11-22 12:56] LABS: HEMATOCRIT 31.5 % (42.0-54.0); HEMOGLOBIN 10.7 g/dL (13.5-17.5)
--- NOTE | 2018-11-22 19:21 | MORECARE ---
CASE MANAGEMENT DISCHARGE SUMMARY PATIENT: KADEN FOWLER UNIT: [id number] ADM DATE: 11/20/18 AGE: 43 : 75 SEX: M ROOM/BED: [facility] AUTHOR: UTE PANCHAL PHYSICIAN: REFERRING PHYSICIAN: GERALDO NOLEN MD DATE OF SERVICE: 11/22/18 Discharge Plan Patient Name: KADEN FOWLER [facility] [facility] 1975 Planned Disposition: Home Anticipated Discharge Date: Discharge Date: Expected LOS: Initial Reviewer: [email or web address] Initial Review Date: 11/22/2018 Generated: 11/22/18 8:21 pm DCPIA - Discharge Planning Initial Assessment Updated by [email or web address]: Sulema Soria on 11/22/18 7:18 pm * Is the patient Alert and Oriented? Yes * How many steps to enter\exit or inside your home? * PCP BEE * Pharmacy [facility] IN [place] * Preadmission Environment Home with Family * ADLs Independent * List name and contact numbers for known caregivers / representatives who currently or will assist patient after discharge: MARISA FOWLER - - [phone] * Verbal permission to speak to the caregivers and representatives has been obtained from the patient. N/A * Community resources currently utilized None * Additional services required to return to the preadmission environment? No * Can the patient safely return to the preadmission environment? Yes * Has this patient been hospitalized within the prior 30 days at any hospital? Yes Patient Name: KADEN FOWLER Page 17094 at 1921 All edits/amendments must be made on the electronic document DICTATION DATE: 11/22/181920 CASE ASSISTANT: LEATHA 11/22/181920 RPT#: [id number] DC DATE: STATUS: ADM IN [place] [address] [place] [address] END OF REPORT
--- NOTE | 2018-11-22 19:28 | MORECARE ---
CASE MANAGEMENT DISCHARGE SUMMARY PATIENT: KADEN FOWLER UNIT: [id number] ADM DATE: 11/20/18 AGE: 43 : 75 SEX: M [facility] AUTHOR: ABDULKADIR,DOC PHYSICIAN: REFERRING PHYSICIAN: GERALDO NOLEN MD DATE OF SERVICE: 11/22/18 Discharge Plan Patient Name: KADEN FOWLER Facility: [facility]:[place] : 1975 Planned Disposition: Home Anticipated Discharge Date: Discharge Date: Expected LOS: Initial Reviewer: [email or web address] Initial Review Date: 11/22/2018 Generated: 11/22/18 8:28 pm Comments DCP- Discharge Planning Updated by [email or web address]: Sulema Soria on 11/22/18 6:[address] Patient Name: KADEN FOWLER Admission Status: ER Accout number: [id number] Admission Date: 11-20-2018 : 1975 Admission Diagnosis:GASTROINTESTINAL HEMORRHAGE, UNSPECIFIED Attending: GERALDO NOLEN Current LOS: 2 Anticipated DC Date: Planned Disposition: Home Primary Insurance: [employer] OUT OF STATE Discharge Planning Comments: CM met with patient at bedside. Patient states he lives at home with his and family. He plans on returning to his home upon discharge. Patient denies any discharge needs at this time. CM will continue to follow and assist as needed with discharge planning / needs. Fnp: Sulema Soria DCPIA - Discharge Planning Initial Assessment Updated by [email or web address]: Sulema Soria on 11/22/18 7:18 pm * Is the patient Alert and Oriented? Yes * How many steps to enter\exit or inside your home? * PCP BEE * Pharmacy [facility] IN [place] * Preadmission Environment Home with Family * ADLs Independent * List name and contact numbers for known caregivers / representatives who currently or will assist patient after discharge: MARISA FOWLER - - [phone] * Verbal permission to speak to the caregivers and representatives has been obtained from the patient. N/A * Community resources currently utilized None * Additional services required to return to the preadmission environment? No * Can the patient safely return to the preadmission environment? Yes * Has this patient been hospitalized within the prior 30 days at any hospital? Yes Last DP export: 11/22/18 6:21 pm Patient Name: KADEN FOWLER Page 18907 at 192 All edits/amendments must be made on the electronic document DICTATION DATE: 11/22/181927 MANAGER OB: LEATHA 11/22/181927 RPT#: [id number] DC DATE: STATUS: ADM IN [facility] [address] [place] [address] END OF REPORT
[2018-11-23 03:00] VITALS: BP 126/77
[2018-11-23 05:49] LABS: BASOPHILS 0.3 % (0-2); EOSINOPHILS 4.6 % (0-7); HEMATOCRIT 28.7 % (42.0-54.0); HEMOGLOBIN 9.8 g/dL (13.5-17.5); IMMATURE GRANULOCYTES 7.2 % (0-5); LYMPHOCYTES 9.4 % (15-50); MCH 28.4 pg (26.0-34.0); MCHC 34.1 g/dL (31.0-37.0); MCV 83.2 fL (80.0-100.0); MEAN PLATELET VOLUME 10.4 fL (7.4-10.4); NEUTROPHILS 63.5 % (40-80); RBC 3.45 10x6/uL (4.20-6.10); RDW 16.8 % (11.5-14.5); WBC 3.1 10x3/uL (4.8-10.8)
[2018-11-23 06:20] LABS: ALBUMIN 1.8 g/dL (3.4-5.0); ALKALINE PHOSPHATASE 63 U/L (46-116); ALT (SGPT) 9 U/L (10-68); CALC OSMOLALITY 277 mosm/kg (275-300); CALCIUM 7.7 mg/dL (8.5-10.1); CARBON DIOXIDE 29.6 mmol/L (21.0-32.0); CHLORIDE - SERUM 107 mmol/L (98-107); CREATININE - SERUM 0.5 mg/dL (0.6-1.3); GLUCOSE 90 mg/dL (74-106); POTASSIUM - SERUM 3.2 mmol/L (3.5-5.1); PROTEIN - SERUM 4.8 g/dL (6.4-8.2); SODIUM 141 mmol/L (136-145); eGFR NON AFRICAN AMERICAN > 90 mL/min (90-120)
[2018-11-23 06:24] LABS: UREA NITROGEN 5 mg/dL (7-18)
[2018-11-23 06:28] LABS: PLATELET COUNT 196 10x3/uL (130-400)
[2018-11-23 07:00] VITALS: BP 117/84
[2018-11-23 07:30] VITALS: BP 138/97
[2018-11-23 11:00] VITALS: BP 136/91
[2018-11-23 15:00] VITALS: BP 130/88
[2018-11-23] MEDS ORDERED: LEVOFLOXACIN500 MG PO (17:36)
[2018-11-23] MEDS ORDERED: FLAGYL500 MG PO (17:37)
--- NOTE | 2018-11-24 15:07 | MORECARE ---
CASE MANAGEMENT DISCHARGE SUMMARY PATIENT: KADEN FOWLER UNIT: [id number] ADM DATE: 11/20/18 AGE: 43 : 75 SEX: M [facility] AUTHOR: ABDULKADIRDOC PHYSICIAN: REFERRING PHYSICIAN: GERALDO NOLEN MD DATE OF SERVICE: 11/24/18 Discharge Plan Patient Name: KADEN FOWLER Facility: [facility]:[place] : 1975 Planned Disposition: Home Anticipated Discharge Date: Discharge Date: 11/23/2018 Expected LOS: Initial Reviewer: [email or web address] Initial Review Date: 11/22/2018 Generated: 11/24/18 4:07 pm Comments DCP- Discharge Planning Updated by [email or web address]: Sulema Soria on 11/22/18 6:[address] Patient Name: KADEN FOWLER Admission Status: ER Accout number: [id number] Admission Date: 11-20-2018 : 1975 Admission Diagnosis:GASTROINTESTINAL HEMORRHAGE, UNSPECIFIED Attending: GERALDO NOLEN Current LOS: 2 Anticipated DC Date: Planned Disposition: Home Primary Insurance: [employer] OUT OF STATE Discharge Planning Comments: CM met with patient at bedside. Patient states he lives at home with his and family. He plans on returning to his home upon discharge. Patient denies any discharge needs at this time. CM will continue to follow and assist as needed with discharge planning / needs. Pharmaceutical Sales: Sulema Soria DCPIA - Discharge Planning Initial Assessment Updated by [email or web address]: Sulema Soria on 11/22/18 7:18 pm * Is the patient Alert and Oriented? Yes * How many steps to enter\exit or inside your home? * PCP BEE * Pharmacy [facility] IN [place] * Preadmission Environment Home with Family * ADLs Independent * List name and contact numbers for known caregivers / representatives who currently or will assist patient after discharge: MARISA FOWLER - - [phone] * Verbal permission to speak to the caregivers and representatives has been obtained from the patient. N/A * Community resources currently utilized None * Additional services required to return to the preadmission environment? No * Can the patient safely return to the preadmission environment? Yes * Has this patient been hospitalized within the prior 30 days at any hospital? Yes Last DP export: 11/22/18 6:28 pm Patient Name: KADEN FOWLER Page 61723 at 1507 All edits/amendments must be made on the electronic document DICTATION DATE: 11/24/181506 PULP PRESS TENDER: LEATHA 11/24/18 1507 RPT#: [id number] DC DATE:11/23/18 STATUS: DIS IN [facility] [address] [place] [address] END OF REPORT
[2018-11-24 18:08] LABS: ANA REFLEX - DIRECT Negative (Negative)
[2018-11-25 20:07] LABS: OVA + PARASITE EXAM Final report (())
== END 2018-11-23 18:39 | disposition home or self-care (01) | DRG 391 ==
LOC: D.ER 20:03 → D.CVICU 21:07
PROVIDERS: Family Medicine; Internal Medicine Gastroenterology; ADMIT Internal Medicine Nephrology; ATTEND Internal Medicine Nephrology
PROC: 0DBB8ZX Excision of Ileum, Via Natural or Artificial Opening Endoscopic, Diagnostic (ICD-10-PCS; principal; 2018-11-23 09:00)
DX: A09 Infectious gastroenteritis and colitis, unspecified (principal); E43 Unspecified severe protein-calorie malnutrition; D61.818 Other pancytopenia; C91.10 Chronic lymphocytic leukemia of B-cell type not having achieved remission; Z68.1 Body mass index [BMI] 19.9 or less, adult; D50.9 Iron deficiency anemia, unspecified; L51.9 Erythema multiforme, unspecified; A49.01 Methicillin susceptible Staphylococcus aureus infection, unspecified site; K21.9 Gastro-esophageal reflux disease without esophagitis; Z98.84 Bariatric surgery status

== ENCOUNTER → 2018-12-20 09:10 | Outpatient (CLI) | payer BC ==
[~2018-12-20 09:10] MED LIST changes: +AMBIEN10 MG; +CLEOCIN HCL300 MG PO; +EZFE 200200 MG PO; +FLAGYL500 MG PO; +K-DUR20 MEQ; +LEVOFLOXACIN500 MG PO; +OMEPRAZOLE40 MG; +PHENERGAN25 M1 PO; +ROBAXIN500 MG PO; +VITAMIN D2000 UNIT PO; +XANAX0.5 MG PO; +ZANTAC300 MG PO
== END | disposition home or self-care (01) ==
LOC: D.LAB 09:10
DX: R10.84 Generalized abdominal pain (principal); K59.00 Constipation, unspecified; R11.0 Nausea; R63.4 Abnormal weight loss

== ENCOUNTER 2018-12-21 06:28 | Day surgery (SDC) | payer BC ==
[~2018-12-21 06:28] MED LIST changes: -AMBIEN10 MG; -PHENERGAN25 M1 PO; -ZANTAC300 MG PO
[2018-12-21] MEDS ORDERED: AMBIEN10 MG (07:37)
[2018-12-21 07:45] VITALS: BP 142/94
[2018-12-21 09:15] LABS: BASOPHILS 0.3 % (0-2); EOSINOPHILS 0.5 % (0-7); HEMATOCRIT 32.5 % (42.0-54.0); HEMOGLOBIN 11.3 g/dL (13.5-17.5); IMMATURE GRANULOCYTES 5.7 % (0-5); LYMPHOCYTES 9.2 % (15-50); MCH 30.2 pg (26.0-34.0); MCHC 34.8 g/dL (31.0-37.0); MCV 86.9 fL (80.0-100.0); MEAN PLATELET VOLUME 9.6 fL (7.4-10.4); MONOCYTES 11.1 % (2-11); NEUTROPHILS 73.2 % (40-80); RBC 3.74 10x6/uL (4.20-6.10); RDW 15.6 % (11.5-14.5); WBC 3.7 10x3/uL (4.8-10.8)
[2018-12-21 09:16] LABS: CALC OSMOLALITY 278 mosm/kg (275-300); CALCIUM 9.1 mg/dL (8.5-10.1); CARBON DIOXIDE 31.5 mmol/L (21.0-32.0); CHLORIDE - SERUM 104 mmol/L (98-107); CREATININE - SERUM 0.7 mg/dL (0.6-1.3); POTASSIUM - SERUM 3.3 mmol/L (3.5-5.1); SODIUM 140 mmol/L (136-145); UREA NITROGEN 17 mg/dL (7-18); eGFR NON AFRICAN AMERICAN > 90 mL/min (90-120)
[2018-12-21 09:19] LABS: GLUCOSE 67 mg/dL (74-106)
[2018-12-21 09:21] LABS: PLATELET COUNT 256 10x3/uL (130-400)
--- NOTE | 2018-12-21 10:42 | NUR ---
PER ANESTHESIA, PT RECEIVED 4ML OF ROMAZICON AND 1 ML OF NARCAN IN OR
[2018-12-21 11:58] LABS: ALBUMIN 2.5 g/dL (3.4-5.0); ALKALINE PHOSPHATASE 78 U/L (46-116); ALT (SGPT) 17 U/L (10-68); BILIRUBIN - TOTAL 0.57 mg/dL (0.2-1.3); PROTEIN - SERUM 6.2 g/dL (6.4-8.2)
[2018-12-21 14:09] VITALS: BMI 16.0
--- NOTE | 2018-12-21 14:56 | NUR ---
1250 RX'[address]. MOYER ORDER FOR PAIN 04/01, EVEN AFTER TORADOL. 1430 [employer] OPERATOR HERE 1450 STATES PAIN 12/30 NOW
[2018-12-21] MEDS ORDERED: HYDROCODON-ACE1 EAC7 PO (16:55)
--- NOTE | 2018-12-21 17:03 | NUR ---
1700-PHYSICIAN ORDERS, H AND P, FACESHEET, LAB WORK, OP NOTE FAXED TO [facility]. DR GROVE HERE TO SEE PATIENT.
--- NOTE | 2018-12-21 17:48 | NUR ---
1730-PORT FLUSHED WITH 5CC HEP FLUSH AND D/C. PATIENT DRESSING. 1740-DISCHARGE INSTRUCTIONS REVIEWED. 174-D/C HOME WITH PER WHEELCHAIR.
[2018-12-29 13:24] VITALS: BMI 16.0
== END 2018-12-21 17:45 | disposition home or self-care (01) ==
LOC: D.OPS 06:28
PROVIDERS: Anesthesiology; ATTEND Surgery
DX: K31.89 Other diseases of stomach and duodenum (principal); C91.10 Chronic lymphocytic leukemia of B-cell type not having achieved remission; E43 Unspecified severe protein-calorie malnutrition; R64 Cachexia; R13.10 Dysphagia, unspecified; Z01.812 Encounter for preprocedural laboratory examination

== ENCOUNTER → 2019-01-19 09:01 | Outpatient (CLI) | payer BC | END | disposition home or self-care (01) | LOC: D.RAD 09:01 | DX: R63.4 Abnormal weight loss (principal); R10.9 Unspecified abdominal pain; K59.00 Constipation, unspecified; R11.2 Nausea with vomiting, unspecified; R13.10 Dysphagia, unspecified; K62.5 Hemorrhage of anus and rectum ==

== ENCOUNTER 2019-02-01 06:18 | Day surgery (SDC) | payer BC ==
[~2019-02-01] VITALS: Ht 180.3 cm; Wt 61.8 kg
[~2019-02-01 06:18] MED LIST changes: +AMBIEN10 MG
[2019-02-01 06:50] LABS: HEMATOCRIT 33.2 % (42.0-54.0); HEMOGLOBIN 10.9 g/dL (13.5-17.5); MCH 29.8 pg (26.0-34.0); MCHC 32.8 g/dL (31.0-37.0); MCV 90.7 fL (80.0-100.0); MEAN PLATELET VOLUME 8.1 fL (7.4-10.4); RBC 3.66 10x6/uL (4.20-6.10); WBC 2.6 10x3/uL (4.8-10.8)
[2019-02-01 06:53] LABS: CALC OSMOLALITY 284 mosm/kg (275-300); CALCIUM 8.7 mg/dL (8.5-10.1); CARBON DIOXIDE 31.6 mmol/L (21.0-32.0); CHLORIDE - SERUM 107 mmol/L (98-107); CREATININE - SERUM 0.6 mg/dL (0.6-1.3); GLUCOSE 80 mg/dL (74-106); POTASSIUM - SERUM 3.5 mmol/L (3.5-5.1); SODIUM 144 mmol/L (136-145); UREA NITROGEN 11 mg/dL (7-18); eGFR NON AFRICAN AMERICAN > 90 mL/min (90-120)
[2019-02-01] MEDS ORDERED: PHENERGAN25 M1 PO (07:12)
[2019-02-01] MEDS ORDERED: ZANTAC300 MG PO (07:13)
[2019-02-01 07:31] VITALS: BP 112/69; Ht 180.3 cm; Wt 61.8 kg
--- NOTE | 2019-02-01 08:40 | NUR ---
REC'D FROM GI. FAMILY AT BEDSIDE. JUAN COOK SERVED TO PT.
--- NOTE | 2019-02-01 08:50 | NUR ---
CALLED SURGERY TO SPEAK WITH DR GROVE REGARDING DISCHARGE ORDERS ON PATIENT.
--- NOTE | 2019-02-01 09:10 | NUR ---
TOLERATED FL DIET. IV DC'D FROM LEFT PORT. FLUSHED WITH HEPARIN. WRITTEN AND VERBAL DC INST. GIVEN TO PATIENT. VERBALIZED UNDERSTANDING.
--- NOTE | 2019-02-01 09:28 | NUR ---
DC'D HOME WITH FAMILY VIA PRIVATE WC. STABLE AT TIME OF DC.
== END 2019-02-01 09:28 | disposition home or self-care (01) ==
LOC: D.OPS 06:18
PROVIDERS: Anesthesiology; ATTEND Surgery
DX: K31.89 Other diseases of stomach and duodenum (principal); R13.10 Dysphagia, unspecified; Z01.812 Encounter for preprocedural laboratory examination